=== PATIENT | male | born 1940 | race Caucasian/White ===

== ENCOUNTER → 2019-03-22 | Outpatient (CLI) | payer MEDICARE, OTHER ==
[~2019-03-22] MED LIST: GLYB2.5; LISI5 PO; LORA1 PO; LOVA20 PO; METF500; OXYACE5T PO; PIOG15; PIOG45 PO; RXOXYACE PO
== END | disposition home or self-care (01) ==
LOC: PLD 12:07 → LAB SHORT 12:07
DX: D22.5 Melanocytic nevi of trunk (principal)
CPT/HCPCS: 88305

== ENCOUNTER 2019-04-04 18:00 | Emergency (ER) | payer MEDICARE, OTHER | END 2019-04-04 18:47 | disposition left against medical advice (07) | LOC: ER 18:00 | DX: Z53.21 Procedure and treatment not carried out due to patient leaving prior to being seen by health care provider (principal) ==

== ENCOUNTER → 2019-04-07 | Outpatient (CLI) | payer MEDICARE, OTHER | END | disposition home or self-care (01) | LOC: PLD 07:41 → LAB SHORT 07:41 | DX: D22.5 Melanocytic nevi of trunk (principal) | CPT/HCPCS: 88305 ==

== ENCOUNTER 2025-06-19 15:50 | Emergency (ER) | payer OTHER ==
[~2025-06-19] VITALS: Ht 177.8 cm; Wt 90.7 kg
[~2025-06-19 15:50] MED LIST changes: +AMLODIPINE BES2.5 MG PO; -METF500; +METF500 PO
[2025-06-19 16:17] LABS: BASOPHILS ABSOLUTE AUTO 0.11 K/mm3 (0.00-0.23); BASOPHILS PERCENT AUTO 1 % (0-2); EOSINOPHILS ABSOLUTE AUTO 0.48 K/mm3 (0.00-0.68); EOSINOPHILS PERCENT AUTO 5 % (0-6); Hematocrit 40.3 % (37.0-53.0); Hemoglobin 13.3 g/dL (13.5-17.5); IMMATURE GRAN ABSOLUTE AUTO 0.04 K/mm3 (0.00-0.10); IMMATURE GRAN PERCENT AUTO 0 % (0-1); LYMPHOCYTES ABSOLUTE AUTO 4.23 K/mm3 (0.84-5.20); LYMPHOCYTES PERCENT AUTO 39 % (21-46); MONOCYTES ABSOLUTE AUTO 1.04 K/mm3 (0.16-1.47); MONOCYTES PERCENT AUTO 10 % (4-13); Mean Corpuscular HGB Conc 33.0 g/dL (31.5-36.5); Mean Corpuscular Volume 92 fL (80-100); NEUTROPHILS ABSOLUTE AUTO 4.88 K/mm3 (1.96-9.15); NEUTROPHILS PERCENT AUTO 45 % (41-73); NRBC ABSOLUTE 0.00 K/mm3 (0.00-0.02); NRBC Auto 0.0 /100 WBC (0.0-0.2); Platelet Count 339 K/mm3 (150-400); RDW Coefficient Variation 13.2 % (11.7-14.2); RDW Standard Deviation 44.9 fL (35.1-46.3)
[2025-06-19 16:34] LABS: Alanine Aminotransfer (ALT/SGP 16.0 U/L (12-78); Albumin, Blood 3.7 g/dL (3.4-5.0); Albumin/Globulin Ratio 1.1 (0.8-1.8); Anion Gap 11.0 mmol/L (3-11); Aspartate Aminotrans (AST/SGOT 18.0 U/L (12-37); Bilirubin, Total 0.4 mg/dL (0.1-1.0); Blood Urea Nitrogen 23.0 mg/dL (8-24); CO2, Blood 24.0 mmol/L (21-32); Calcium, Blood 9.3 mg/dL (8.5-10.1); Chloride, Blood 106.0 mmol/L (98-108); Creatinine, Blood 0.98 mg/dL (0.60-1.20); Globulin, Blood 3.5 g/dL (2.2-4.0); Glucose, Blood 202.0 mg/dL (70-99); Potassium, Blood 4.3 mmol/L (3.5-5.5); Sodium, Blood 137.0 mmol/L (136-145); Total Protein, Blood 7.2 g/dL (6.4-8.2)
[2025-06-19] MEDS ORDERED: GLIM2 PO (20:23)
[2025-06-19] MEDS ORDERED: LISI20 PO (20:24)
[2025-06-19] MEDS ORDERED: MAGNESIUM OXID500 MG PO (20:24)
[2025-06-19] MEDS ORDERED: FISH OIL 1,0001 EA10 PO (20:24)
[2025-06-19] MEDS ORDERED: ASPI81CH PO (20:24)
[2025-06-19] MEDS ORDERED: [UNRECOGNIZED DRUG - OTHER] PO (20:25)
[2025-06-19] MEDS ORDERED: DERMACINRX FOL1 EAC2 PO (20:26)
[2025-06-19] MEDS ORDERED: CLOP75 PO (21:07)
[2025-06-20 02:02] VITALS: BP 161/79
== END 2025-06-20 02:23 | disposition short-term general hospital (02) ==
LOC: ER 15:50
PROVIDERS: Emergency Medicine
DX: G45.9 Transient cerebral ischemic attack, unspecified (principal); E11.9 Type 2 diabetes mellitus without complications; I10 Essential (primary) hypertension; Z79.84 Long term (current) use of oral hypoglycemic drugs; Z79.899 Other long term (current) drug therapy
CPT/HCPCS: 70450; 70496; 70498; 80053; 82947; 83721; 85025; 93005; 93010; 99285-25; A9270; Q9967